=== PATIENT | male | born 1950 | race Caucasian/White ===

== ENCOUNTER → 2017-03-04 | Outpatient (CLI) | payer BC ==
--- NOTE | 2017-03-04 17:34 | US ---
Procedure: US RETROPERITONEUM Exam Date: 03/04/2017 Ordering Provider: FREDRICK GARCIA Clinical Indication: RENAL CYST Comparison: 12/03/2014 CT abdomen and pelvis and 06/17/2014 renal ultrasound Technique: Real-time ultrasonography was obtained over the kidneys and home office representative images were recorded. Findings: The right kidney is normal in size and contour. The right kidney measures 11.0 x 5.2 x 5.2 cm in CC, transverse, and AP dimensions. There is normal renal cortical thickness and echogenicity. There are no masses or calculi. There is very mild hydronephrosis. The left kidney is normal in size and contour. The left kidney measures 10.7 x 5.4 x 5.6 cm in CC, transverse, and AP dimensions. There is normal renal cortical thickness and echogenicity. There are no masses or hydronephrosis. There are multiple renal stones, largest measuring 7 mm in the upper pole. There is a 1.3 cm simple cyst in the upper pole. Impression: 1. Very mild hydronephrosis in the right kidney. 2. Multiple nonobstructing stones in the left kidney. 3. Simple cyst in the upper pole of the left kidney. Electronically signed by: Pino Barreto MD 03/04/2017 5:33 PM CDT
== END | disposition home or self-care (01) ==
LOC: US 10:19
PROVIDERS: ATTEND Urology
DX: N28.1 Cyst of kidney, acquired (principal)

== ENCOUNTER → 2017-06-03 | Outpatient (CLI) | payer BC | LOC: GMAB 10:50 | PROVIDERS: ATTEND Family Medicine | DX: Z00.01 Encounter for general adult medical examination with abnormal findings (principal) ==

== ENCOUNTER → 2017-12-20 | Outpatient (CLI) | payer MEDICARE, OTHER ==
--- NOTE | 2017-12-23 08:32 | US ---
EXAM DESCRIPTION: Carotid Duplex CLINICAL HISTORY: 67 years, Male, TRANSIENT CEREBRAL ISCHEMIC ATTACK COMPARISON: [None.] FINDINGS: Indirect estimation of percent stenosis is inferred from velocity parameters and cross referenced to published or self-generated correlations among velocity parameters. Peak systolic velocity right common carotid artery 92 centimeters/second. Peak systolic velocity right internal carotid artery 54 centimeters/second. Right ICA to CCA ratio 0.6. Antegrade flow in the right vertebral artery. Grayscale images show a small amount of plaque in the right carotid bifurcation. Peak systolic velocity left common carotid artery 100 centimeters/second. Peak systolic velocity left internal carotid artery 64 centimeters/second. Left ICA to CCA ratio 0.6. [Antegrade] flow in the left vertebral artery. Grayscale images show a small amount of plaque in the left carotid bifurcation. IMPRESSION: Mild (less than 50%) bilateral carotid artery stenosis. Electronically signed by: Chong Mirza MD 12/23/2017 8:31 AM [facility]
== END ==
LOC: US 09:46
PROVIDERS: ATTEND Family Medicine
DX: G45.9 Transient cerebral ischemic attack, unspecified (principal)

== ENCOUNTER 2018-07-14 05:44 | Day surgery (SDC) | payer MEDICARE, OTHER ==
[2018-07-14] MEDS ORDERED: PROPARACAINE 0.5% OPHTH SOL 15 ML BTTL ONE (11:24)
[2018-07-14] MEDS ORDERED: TROP 1%/CYCLOPEN 1%/PHENYL 2% DROPS ONE (11:24)
[2018-07-14] MEDS ORDERED: MIDAZOLAM INJ 2 MG/2 ML VIAL ONE (12:25)
[2018-07-14] MEDS ORDERED: PROPARACAINE 0.5% OPHTH SOL 15 ML BTTL LEFT_EYE ONE (12:30)
[2018-07-14] MEDS ORDERED: LIDOCAINE 1% PF 2 ML AMP INJ ONE (12:43)
[2018-07-14] MEDS ORDERED: TOBRAMYCIN SULF 0.3 % OPHT SOL 1 DROP LEFT_EYE ONE ×3 (12:44→12:52)
[2018-07-14] MEDS ORDERED: BRIMONIDINE 0.2% OPHTH DROPS LEFT_EYE ONE ×3 (12:44→12:52)
[2018-07-14] MEDS ORDERED: DEXAMETHASONE 0.1% OPHTH SOL 1 DROP LEFT_EYE ONE ×3 (12:44→12:52)
== END 2018-07-14 13:45 | disposition home or self-care (01) ==
LOC: AMB 05:44
PROVIDERS: ATTEND Ophthalmology
DX: H25.12 Age-related nuclear cataract, left eye (principal); I25.10 Atherosclerotic heart disease of native coronary artery without angina pectoris; I10 Essential (primary) hypertension; I25.2 Old myocardial infarction; Z79.82 Long term (current) use of aspirin; Z79.899 Other long term (current) drug therapy
CPT/HCPCS: 00142; 66984; J2250

== ENCOUNTER 2018-07-28 05:35 | Day surgery (SDC) | payer MEDICARE, OTHER ==
[2018-07-28] MEDS ORDERED: TROP 1%/CYCLOPEN 1%/PHENYL 2% DROPS ONE (08:33)
[2018-07-28] MEDS ORDERED: PROPARACAINE 0.5% OPHTH SOL 15 ML BTTL ONE (08:33)
[2018-07-28] MEDS ORDERED: PROPARACAINE 0.5% OPHTH SOL 15 ML BTTL RIGHT_EYE ONE (10:50)
[2018-07-28] MEDS ORDERED: MIDAZOLAM INJ 2 MG/2 ML VIAL ONE (10:59)
[2018-07-28] MEDS ORDERED: DEXAMETHASONE 0.1% OPHTH SOL 1 DROP RIGHT_EYE ONE ×2 (11:01→11:14)
[2018-07-28] MEDS ORDERED: LIDOCAINE 1% 2 ML VIAL INJ ONE ×2 (11:01→11:05)
[2018-07-28] MEDS ORDERED: TOBRAMYCIN SULF 0.3 % OPHT SOL 1 DROP RIGHT_EYE ONE ×2 (11:02→11:14)
[2018-07-28] MEDS ORDERED: BRIMONIDINE 0.2% OPHTH DROPS RIGHT_EYE ONE ×2 (11:02→11:14)
== END 2018-07-28 11:45 | disposition home or self-care (01) ==
LOC: AMB 05:35
PROVIDERS: ATTEND Ophthalmology
DX: H25.11 Age-related nuclear cataract, right eye (principal); I10 Essential (primary) hypertension; I25.10 Atherosclerotic heart disease of native coronary artery without angina pectoris; I25.2 Old myocardial infarction; K21.9 Gastro-esophageal reflux disease without esophagitis; Z79.82 Long term (current) use of aspirin; Z79.899 Other long term (current) drug therapy
CPT/HCPCS: 00142; 66984; J2250

== ENCOUNTER → 2018-09-08 | Outpatient (CLI) | payer MEDICARE, OTHER | LOC: GMAL 18:32 | PROVIDERS: ATTEND Family Medicine | DX: D51.3 Other dietary vitamin B12 deficiency anemia (principal); R53.83 Other fatigue; E55.9 Vitamin D deficiency, unspecified; Z12.5 Encounter for screening for malignant neoplasm of prostate | CPT/HCPCS: 82306; 82607; 84443; G0103 ==

== ENCOUNTER 2019-07-18 18:06 | Emergency (ER) | payer MEDICARE, OTHER ==
[2019-07-18 18:56] VITALS: TEMP 97.9
[2019-07-18 19:38] VITALS: BP 147/79; O2SAT 97
== END 2019-07-18 19:38 | disposition home or self-care (01) ==
LOC: ER 18:06
DX: K08.89 Other specified disorders of teeth and supporting structures (principal)

== ENCOUNTER 2019-09-23 05:09 | Day surgery (SDC) | payer MEDICARE, OTHER ==
[2019-09-23] MEDS ORDERED: LACTATED RINGERS 1,000 ML ONE (06:03)
[2019-09-23] MEDS ORDERED: PROPOFOL 200 MG/20 ML VIAL IV ONE (10:00)
[2019-09-23] MEDS ORDERED: LIDOCAINE 1% 10 ML VIAL INJ ONE (10:00)
--- NOTE | 2019-09-23 10:51 | OP ---
DATE OF PROCEDURE: 09/23/19 PREOPERATIVE DIAGNOSIS: 1. Average risk colon cancer screening. Last colonoscopy was 2003. POSTOPERATIVE DIAGNOSIS: 1. Internal hemorrhoids. 2. Sigmoid diverticulosis. 3. Two ascending colon polyps. PROCEDURE: 1. Colonoscopy plus polypectomy. SURGEON: Maxime Sorto MD. COMPLICATIONS: None apparent. BLOOD LOSS: None. MEDICATIONS: Monitored anesthesia care. DESCRIPTION OF PROCEDURE: Informed consent was obtained prior to sedation. The preprocedure cardiopulmonary assessment was satisfactory. The patient was placed in the left lateral decubitus position and was sedated. A digital rectal exam was unremarkable. The tip of the Olympus colonoscope was inserted in the rectum and guided over to the cecum. The cecum was identified by locating the ileocecal valve and appendiceal orifice. Retroflexed view of the right colon was obtained. Prep was good. The mucosa of the cecum, ascending colon, hepatic flexure, transverse colon, splenic flexure, descending colon and sigmoid colon was closely examined. Direct and retroflexed views of the rectum were obtained. The patient had two 4 mm polyps in the ascending colon that appear adenomatous. They were removed with a cold snare and recovered. The patient has several sigmoid colon diverticula. The patient has internal hemorrhoids seen on retroflexed view. Otherwise, the colonoscopy was unremarkable. RECOMMENDATIONS: 1. Followup polyp pathology. Call our office in one week to discuss the results. 2. The timing for the next colonoscopy will be determined upon review of the pathology results. #[id number] cc: Casey Ta MD MTDD
[2019-09-23 16:45] VITALS: O2SAT 97
[2019-09-23 16:47] VITALS: BP 145/81; TEMP 97.5
== END 2019-09-23 12:15 | disposition home or self-care (01) ==
LOC: AMB 05:09
PROVIDERS: ATTEND Internal Medicine Gastroenterology
DX: Z12.11 Encounter for screening for malignant neoplasm of colon (principal); D12.2 Benign neoplasm of ascending colon; K64.8 Other hemorrhoids; K57.30 Diverticulosis of large intestine without perforation or abscess without bleeding; I10 Essential (primary) hypertension; I25.10 Atherosclerotic heart disease of native coronary artery without angina pectoris; I25.2 Old myocardial infarction; Z79.82 Long term (current) use of aspirin; Z79.899 Other long term (current) drug therapy
CPT/HCPCS: 00812; 45385; 88305; J3490; J7120

== ENCOUNTER → 2019-11-26 | Outpatient (CLI) | payer MEDICARE, OTHER | LOC: GMAL 10:39 | PROVIDERS: ATTEND Family Medicine | DX: Z12.5 Encounter for screening for malignant neoplasm of prostate (principal); R53.83 Other fatigue; E55.9 Vitamin D deficiency, unspecified; D51.3 Other dietary vitamin B12 deficiency anemia; I10 Essential (primary) hypertension; E78.00 Pure hypercholesterolemia, unspecified | CPT/HCPCS: 82306; 82607; 84443; G0103 ==

== ENCOUNTER → 2020-05-27 | Outpatient (CLI) | payer MEDICARE, OTHER | LOC: GMAL 10:22 | PROVIDERS: ATTEND Family Medicine | DX: D51.3 Other dietary vitamin B12 deficiency anemia (principal); E55.9 Vitamin D deficiency, unspecified; E78.5 Hyperlipidemia, unspecified; Z79.899 Other long term (current) drug therapy ==

== ENCOUNTER → 2020-12-05 | Outpatient (CLI) | payer MEDICARE, OTHER | LOC: GMAL 10:39 | PROVIDERS: ATTEND Family Medicine | DX: Z12.5 Encounter for screening for malignant neoplasm of prostate (principal) ==